=== PATIENT | female | born 1985 | race American Indian/Alaskan Native ===

== ENCOUNTER 2019-11-21 02:24 | Observation (INO) | payer MEDICAID ==
--- NOTE | 2019-11-21 03:16 | XRay Report ---
CHEST 1 VIEW, 11/21/2019 3:01 AM CLINICAL INFORMATION/INDICATION: Chest pain COMPARISON: None FINDINGS: SUPPORT DEVICES: None. HEART: The cardiac silhouette is normal in size. LUNGS/PLEURA: The lungs are clear of focal airspace disease or significant pleural effusion. ADDITIONAL FINDINGS: No additional acute findings. IMPRESSION: 1. No evidence of acute cardiopulmonary process. Signer Name: Ailyn Gresham MD Signed: 11/21/2019 3:11 AM Workstation Name: [id number]
[2019-11-21 03:55] LABS: Blood Urea Nitrogen 10 mg/dL (7-17); Calcium 9.3 mg/dL (8.4-10.2); Hemolysis Index 2
[2019-11-21 03:59] LABS: BUN/Creatinine Ratio 20
[2019-11-21 04:07] LABS: Basophils # (Auto) 0.1 K/mm3 (0.0-0.1); Basophils % (Auto) 0.5 % (0.0-1.8); Eosinophils # (Auto) 0.1 K/mm3 (0.0-0.4); Eosinophils % (Auto) 0.7 % (0.0-4.3); Hematocrit 35.4 % (30.3-42.9); Hemoglobin 11.3 gm/dl (10.1-14.3); Lymphocytes # (Auto) 2.3 K/mm3 (1.2-5.4); Mean Corpuscular HGB Conc 32 % (30-34); Mean Corpuscular Volume 72 fl (79-97); Monocytes # (Auto) 0.9 K/mm3 (0.0-0.8); Monocytes % (Auto) 8.6 % (0.0-7.3); Platelet Count 252 K/mm3 (140-440); Red Blood Count 4.91 M/mm3 (3.65-5.03); Red Cell Distribution Width 19.2 % (13.2-15.2)
[2019-11-21] MEDS ORDERED: ONDANSETRON 4 MG/2 ML INJ IV ONE (07:10)
[2019-11-21] MEDS ORDERED: SODIUM CHLORIDE 0.9% 1000 ML 1,000 ML IV ONE (07:10)
[2019-11-21] MEDS ORDERED: MORPHINE 4 MG/1 ML INJ IV ONE (07:10)
--- NOTE | 2019-11-21 07:15 | Emergency Department Report ---
ED Abdominal Pain HPI - General Chief Complaint: Chest Pain Stated Complaint: ABDOMINAL & CHEST PAIN Time Seen by Provider: 11/21/19 07:05 Source: patient, EMS Mode of arrival: Ambulatory Limitations: No Limitations - History of Present Illness Initial Comments: Patient is 34 years old female with no significant past medical history. Patient presented to the ER complaining of sudden onset of epigastric, substernal pain. Patient described as sharp increase when she swallow. Patient denied any nausea or vomiting or diarrhea. Patient stated that pain started when she came back from work this morning. Patient also denied any fever or chills. No cough or shortness of breath. Pain does not radiate to her chest. MD Complaint: abdominal pain -: This morning Location: RUQ, epigastric Radiation: none Migration to: no migration Severity: severe Severity scale (0 -10): 10 Consistency: constant - Related Data Allergies Allergy/AdvReac Type Severity Reaction Status Date / Time No Known Allergies Allergy Unverified 11/21/19 02:43 ED Review of Systems ROS: Stated complaint: ABDOMINAL & CHEST PAIN Other details as noted in HPI Comment: All other systems reviewed and negative Constitutional: denies: chills, fever Respiratory: denies: cough, orthopnea, shortness of breath, SOB with exertion Cardiovascular: denies: chest pain, palpitations, dyspnea on exertion Gastrointestinal: abdominal pain. denies: nausea, vomiting, diarrhea, constipation, hematemesis, melena, hematochezia Genitourinary: denies: frequency Musculoskeletal: denies: back pain Neurological: denies: headache, weakness, numbness ED Past Medical Hx - Past Medical History Previous Medical History?: No - Surgical History Past Surgical History?: Yes Additional Surgical History: Colostomy and colostomy reversal, Hysterectomy - Social History Smoking Status: Never Smoker Substance Use Type: None ED Physical Exam - General Limitations: No Limitations General appearance: alert, in distress - Head Head exam: Present: atraumatic, normocephalic, normal inspection - Eye Eye exam: Present: normal appearance - ENT ENT exam: Present: normal exam, normal orophraynx, mucous membranes moist - Neck Neck exam: Present: normal inspection, full ROM. Absent: tenderness, meningismus, lymphadenopathy, thyromegaly - Respiratory Respiratory exam: Present: normal lung sounds bilaterally - Cardiovascular Cardiovascular Exam: Present: regular rate, normal rhythm, normal heart sounds - GI/Abdominal GI/Abdominal exam: Present: soft, tenderness (Epigastric tenderness.), normal bowel sounds. Absent: distended, guarding, rebound, rigid, organomegaly, mass, bruit, pulsatile mass, hernia - Extremities Exam Extremities exam: Present: normal inspection, full ROM, normal capillary refill. Absent: tenderness, pedal edema, calf tenderness - Back Exam Back exam: Present: normal inspection, full ROM. Absent: CVA tenderness (R), CVA tenderness (L) - Neurological Exam Neurological exam: Present: alert, oriented X3, CN II-XII intact, normal gait, reflexes normal - Psychiatric Psychiatric exam: Present: normal mood - Skin Skin exam: Present: warm, intact, normal color ED Course Vital Signs 11/21/19 11/21/19 11/21/19 02:30 07:40 13:09 Temperature 98.2 F 98.6 F Pulse Rate 71 61 64 Respiratory 19 19 20 Rate Blood Pressure 122/82 137/76 Blood Pressure 121/60 [Left] O2 Sat by Pulse 99 100 98 Oximetry ED Medical Decision Making - Lab Data Result diagrams: 11/21/19 03:14 11/21/19 03:14 - Radiology Data Radiology results: report reviewed - Medical Decision Making Patient is 34 years old female with no significant past medical history. Patient presented to the ER complaining of sudden onset of epigastric, substernal pain. Patient described as sharp increase when she swallow. Patient denied any nausea or vomiting or diarrhea. Patient stated that pain started when she came back from work this morning. Patient also denied any fever or chills. No cough or shortness of breath. Pain does not radiate to her chest. Patient received morphine, fentanyl and Zofran. Patient still in pain. Labs reviewed and is unremarkable except for elevated d-dimer however CTA chest is negative for PE or any other acute pathology. Right upper quadrant ultrasound showed cholelithiasis with possible acute cholecystitis. I discussed the patient with , surgeon employee communications intern. She advised to admit patient to the hospital continue antibiotic and she will be consulted and the patient. I discussed the patient with Dr. Tolliver, he agreed to admit the patient to his service for further management. Critical care attestation.: If time is entered above; I have spent that time in minutes in the direct care of this critically ill patient, excluding procedure time. ED Disposition Clinical Impression: Abdominal pain, Acute cholecystitis Disposition: DC-09 OP ADMIT IP TO THIS HOSP Is pt being admited?: Yes Condition: Stable
[2019-11-21 07:57] LABS: INR 0.95 (0.87-1.13); Partial Thromboplastin Time 30.3 Sec. (24.2-36.6)
--- NOTE | 2019-11-21 08:39 | Ultrasound Report ---
ULTRASOUND ABDOMEN, LIMITED (RIGHT UPPER QUADRANT) INDICATION: Right upper quadrant pain, gallbladder ultrasound. COMPARISON: None available. FINDINGS: Pancreas: Obscured by bowel gas Liver: Hepatic steatosis. Gallbladder: Multiple gallstones. Bile ducts: Normal. Common Bile Duct measures 4-5 mm. Free fluid: None. Additional Findings: None. IMPRESSION: 1. Cholelithiasis. While there is no common duct dilatation, gallbladder wall thickening or perichole cystic fluid, the tree cutter reports a positive sonographic Mcdonnell's sign which suggests acute cha cystitis, correlate clinically. Signer Name: Henry Skelton MD Signed: 11/21/2019 8:34 AM Workstation Name: [id number]
[2019-11-21 08:42] LABS: Bilirubin,Urine NEG (Negative); Blood,Urine SM (Negative); Color,Urine Yellow (Yellow); Mucus,Urine 2+ /HPF; Protein,Urine <15 mg/dL mg/dL (Negative); Urobilinogen,Urine < 2.0 mg/dL (<2.0)
[2019-11-21] MEDS ORDERED: PIPERACILLIN/TAZOBACTAM 3.375 3.375 GM/50 ML BAG IV ONE ×2 (09:40→12:25)
[2019-11-21] MEDS ORDERED: fentaNYL 100 MCG/2 ML INJ IV ONE (09:41)
--- NOTE | 2019-11-21 10:30 | Cat Scan Report ---
CTA CHEST WITH IV CONTRAST INDICATION: MAIN. TECHNIQUE: Axial CT images were obtained through the chest after injection of IV contrast. 3 plane MIP reconstru ctions were produced. All CT scans at this location are performed using CT dose reduction for ALARA b y means of automated exposure control. COMPARISON: None available. FINDINGS: Pulmonary Arteries: No pulmonary emboli. Thoracic Aorta: No acute abnormality. Heart: Normal. Lungs: No acute air space or interstitial disease. Pleura: No pleural effusion. No pneumothorax. Lymph Nodes: No significant adenopathy. Additional Findings: There is a 2.7 cm hypodense lesion in the left thyroid lobe. Enlargement of the left lobe slightly displaces the airway toward the right. Upper Abdomen: Punctate gallstones are noted. Skeletal Structures: No significant osseous abnormality. IMPRESSION: 1. No CT evidence for pulmonary embolism. 2. No acute findings. 3. Incidental findings as above. Incidental thyroid nodule in left lobe measuring 2.7 cm in patient under age 35. Recommendation based on ACR guidelines: Follow-up outpatient diagnostic thyroid ultrasound. Signer Name: Henry Skelton MD Signed: 11/21/2019 10:26 AM Workstation Name: [id number]
--- NOTE | 2019-11-21 11:38 | History and Physical Report ---
History of Present Illness Date of examination: 11/21/19 Chief complaint: abd pain History of present illness: Patient is 34 years old female with no significant past medical history who presented to the ER complaining of sudden onset of epigastric, substernal pain with mild tenderness in the right upper quadrant. Patient denied any nausea or vomiting or diarrhea. Patient stated that pain started when she came back from work this morning. Patient also denied any fever or chills. No cough or shortness of breath. Pain does not radiate to her chest. Past History Past Medical History: No medical history Past Surgical History: No surgical history Social history: no significant social history Family history: no significant family history Medications and Allergies Allergies Allergy/AdvReac Type Severity Reaction Status Date / Time No Known Allergies Allergy Unverified 11/21/19 02:43 Exam - Constitutional Vitals: Temp Pulse Resp BP Pulse Ox 98.2 F 61 19 121/60 100 11/21/19 02:30 11/21/19 07:40 11/21/19 07:40 11/21/19 07:40 11/21/19 07:40 General appearance: Present: no acute distress, well-nourished - EENT Eyes: Present: PERRL ENT: hearing intact, clear oral mucosa - Neck Neck: Present: supple, normal ROM - Respiratory Respiratory effort: normal Respiratory: bilateral: CTA - Cardiovascular Heart Sounds: Present: S1 & S2. Absent: rub, click - Extremities Extremities: pulses symmetrical, No edema Peripheral Pulses: within normal limits - Abdominal General gastrointestinal: Present: soft, tender, non-distended, normal bowel sounds Localized gastrointestinal: tender: RUQ (Mild), epigastric periumbilical (Mild) Female genitourinary: Present: normal - Integumentary Integumentary: Present: clear, warm, dry - Musculoskeletal Musculoskeletal: gait normal, strength equal bilaterally - Psychiatric Psychiatric: appropriate mood/affect, intact judgment & insight - Neurologic Neurologic: CNII-XII intact, moves all extremities HEART Score - HEART Score Troponin: Troponin T < 0.010 ng/mL (0.00-0.029) 11/21/19 09:59 Results - Labs CBC & Chem 7: 11/21/19 03:14 11/21/19 03:14 Labs: Laboratory Last Values WBC 11.0 K/mm3 (4.5-11.0) 11/21/19 03:14 RBC 4.91 M/mm3 (3.65-5.03) 11/21/19 03:14 Hgb 11.3 gm/dl (10.1-14.3) 11/21/19 03:14 Hct 35.4 % (30.3-42.9) 11/21/19 03:14 MCV 72 fl (79-97) L 11/21/19 03:14 MCH 23 pg (28-32) L 11/21/19 03:14 MCHC 32 % (30-34) 11/21/19 03:14 RDW 19.2 % (13.2-15.2) H 11/21/19 03:14 Plt Count 252 K/mm3 (140-440) 11/21/19 03:14 Lymph % (Auto) 21.0 % (13.4-35.0) 11/21/19 03:14 [place] % (Auto) 8.6 % (0.0-7.3) H 11/21/19 03:14 Eos % (Auto) 0.7 % (0.0-4.3) 11/21/19 03:14 Baso % (Auto) 0.5 % (0.0-1.8) 11/21/19 03:14 Lymph # 2.3 K/mm3 (1.2-5.4) 11/21/19 03:14 [place] # 0.9 K/mm3 (0.0-0.8) H 11/21/19 03:14 Eos # 0.1 K/mm3 (0.0-0.4) 11/21/19 03:14 Baso # 0.1 K/mm3 (0.0-0.1) 11/21/19 03:14 Seg Neutrophils % 69.2 % (40.0-70.0) 11/21/19 03:14 Seg Neutrophils # 7.6 K/mm3 (1.8-7.7) 11/21/19 03:14 PT 12.9 Sec. (12.2-14.9) 11/21/19 07:22 INR 0.95 (0.87-1.13) 11/21/19 07:22 APTT 30.3 Sec. (24.2-36.6) 11/21/19 07:22 D-Dimer 257.47 ng/mlDDU (0-234) H 11/21/19 07:22 Sodium 139 mmol/L (137-145) 11/21/19 03:14 Potassium 3.4 mmol/L (3.6-5.0) L 11/21/19 03:14 Chloride 103.2 mmol/L (98-107) 11/21/19 03:14 Carbon Dioxide 22 mmol/L (22-30) 11/21/19 03:14 Anion Gap 17 mmol/L 11/21/19 03:14 BUN 10 mg/dL (7-17) 11/21/19 03:14 Creatinine 0.5 mg/dL (0.6-1.2) L 11/21/19 03:14 Estimated GFR > 60 ml/min 11/21/19 03:14 BUN/Creatinine Ratio 20 % 11/21/19 03:14 Glucose 110 mg/dL (65-100) H 11/21/19 03:14 Calcium 9.3 mg/dL (8.4-10.2) 11/21/19 03:14 Troponin T < 0.010 ng/mL (0.00-0.029) 11/21/19 09:59 HCG, Qual Negative (Negative) 11/21/19 07:22 Urine Color Yellow (Yellow) 11/21/19 Unknown Urine Turbidity Clear (Clear) 11/21/19 Unknown Urine pH 5.0 (5.0-7.0) 11/21/19 Unknown Ur Specific [place] 1.014 (1.003-1.030) 11/21/19 Unknown Urine Protein <15 mg/dl mg/dL (Negative) 11/21/19 Unknown Urine Glucose (UA) Neg mg/dL (Negative) 11/21/19 Unknown Urine Ketones Neg mg/dL (Negative) 11/21/19 Unknown Urine Blood Sm (Negative) 11/21/19 Unknown Urine Nitrite Neg (Negative) 11/21/19 Unknown Urine Bilirubin Neg (Negative) 11/21/19 Unknown Urine Urobilinogen < 2.0 mg/dL (<2.0) 11/21/19 Unknown Ur Leukocyte Esterase Neg (Negative) 11/21/19 Unknown Urine WBC (Auto) 3.0 /HPF (0.0-6.0) 11/21/19 Unknown Urine RBC (Auto) 4.0 /HPF (0.0-6.0) 11/21/19 Unknown U Epithel Cells (Auto) 4.0 /HPF (0-13.0) 11/21/19 Unknown Urine Mucus 2+ /HPF 11/21/19 Unknown [place]/IV: IV Catheter Type [Right INT / Saline Lock Antecubital] Assessment and Plan Assessment and plan: Abdominal pain -? Acute cholecystitis. Patient with positive Mcdonnell sign on exam. However, no common duct dilatation gallbladder wall thickening or pericholecystic fluid. Consult surgery for further evaluation and HIDA scan Left thyroid nodule. CT scan reveals 2.7 cm lesion in the left thyroid lobe. Follow-up with outpatient thyroid ultrasound. Check TSH. Obesity. Patient will be counseled on importance of diet and exercise at discharge.
[2019-11-21] MEDS ORDERED: ONDANSETRON 4 MG/2 ML INJ IV PRN (11:43)
[2019-11-21] MEDS ORDERED: ACETAMINOPHEN 325 MG TAB PO PRN (11:43)
--- NOTE | 2019-11-21 13:04 | Consultation ---
History of Present Illness Consult date: 11/21/19 Reason for consult: abdominal pain Chief complaint: Abdominal pain - History of present illness History of present illness: 34-year-old female with a history of morbid obesity, history of colostomy with r ecent reversal in July 2019 at [facility], [place]. She presents to the emergency room with sudden onset epigastric abdominal pain, lower mid chest pain since last night. The patient states that it started suddenly without any inciting factors. She has never had pain like this in the past. She has no pain after eating food. The pain starts in the subxiphoid area/epigastrium and radiates along bilateral upper quadrants. She also states that she was having a painful sensation when she tries to swallow even water. No fevers or chills, shortness of breath, nausea or vomiting. She states that after her colostomy reversal she was complaining of right-sided abdominal pain which was diagnosed as c onstipation. She was started on MiraLAX by her surgeon and her bowel movements became more regular. However, approximately 2 weeks ago she started having right-sided abdominal pain again and constipation. She presented to [facility], [place] and had a CT scan. She states that she was told by the doctors that there were no acute findings and she was released with a prescription for ibuprofen. The patient states she has been taking ibuprofen multiple times a day for the last 2 weeks. Work-up in the emergency room included an abdominal ultrasound which showed a gallbladder with gallstones, without evidence of wall thickening, CBD dilatation, pericholecystic fluid. Surgery was consulted for evaluation. Past History Past Medical History: No medical history Past Surgical History: hysterectomy, Other (Tubal ligation. Drainage of intra- abdominal abscesses following tubal ligation, hysterectomy, colostomy. Colostomy reversal.) Social history: no significant social history Family history: no significant family history Medications and Allergies Allergies Allergy/AdvReac Type Severity Reaction Status Date / Time No Known Allergies Allergy Unverified 11/21/19 02:43 Active Meds: Active Medications Acetaminophen (Tylenol) 650 mg PO Q4H PRN PRN Reason: Pain MILD(1-3)/Fever >100.5/BERGMAN Sodium Chloride (Nacl 0.9% 1000 Ml) 1,000 mls @ 75 mls/hr IV DIRECT SERGEY Piperacillin Sod/Tazobactam Sod (Zosyn/Ns 4.5gm/100ml) 4.5 gm in 100 mls @ 200 mls/hr IV Q8H SERGEY; Protocol Morphine Sulfate (Morphine) 2 mg IV Q4H PRN PRN Reason: Pain, Moderate (4-6) Ondansetron HCl (Zofran) 4 mg IV Q8H PRN PRN Reason: Nausea And Vomiting Sodium Chloride (Sodium Chloride Flush Syringe 10 Ml) 10 ml IV BID SERGEY Sodium Chloride (Sodium Chloride Flush Syringe 10 Ml) 10 ml IV PRN PRN PRN Reason: LINE FLUSH Review of Systems All systems: negative (10 point ROS performed and negative except for that listed in HPI) Exam Vital Signs Temp Pulse Resp BP Pulse Ox 98.2 F 71 19 122/82 99 11/21/19 02:30 11/21/19 02:30 11/21/19 02:30 11/21/19 02:30 11/21/19 02:30 Narrative exam: Gen.: Awake, alert, oriented 3. No apparent distress ENT: Trachea midline. No lymphadenopathy. No scleral icterus or conjunctival pallor CV: S1, S2 present Respiratory: No audible wheezes Abdomen: Soft, nondistended, obese, tenderness to palpation greatest in the epigastrium and some tenderness in the right upper quadrant and right lower quadrant. Well-healed surgical scar.. No rebound, rigidity, guarding Extremities: No clubbing, cyanosis, edema Results - Labs 11/21/19 03:14 11/21/19 03:14 Abnormal lab results 11/21/19 11/21/19 11/21/19 Range/Units 03:14 03:14 07:22 MCV 72 L (79-97) fl MCH 23 L (28-32) pg RDW 19.2 H (13.2-15.2) % [place] % (Auto) 8.6 H (0.0-7.3) % [place] # 0.9 H (0.0-0.8) K/mm3 D-Dimer 257.47 H (0-234) ng/mlDDU Potassium 3.4 L (3.6-5.0) mmol/L Creatinine 0.5 L (0.6-1.2) mg/dL Glucose 110 H (65-100) mg/dL Diabetes panel 11/21/19 Range/Units 03:14 Sodium 139 (137-145) mmol/L Potassium 3.4 L (3.6-5.0) mmol/L Chloride 103.2 (98-107) mmol/L Carbon Dioxide 22 (22-30) mmol/L BUN 10 (7-17) mg/dL Creatinine 0.5 L (0.6-1.2) mg/dL Glucose 110 H (65-100) mg/dL Calcium 9.3 (8.4-10.2) mg/dL Calcium panel 11/21/19 Range/Units 03:14 Calcium 9.3 (8.4-10.2) mg/dL Pituitary panel 11/21/19 Range/Units 03:14 Sodium 139 (137-145) mmol/L Potassium 3.4 L (3.6-5.0) mmol/L Chloride 103.2 (98-107) mmol/L Carbon Dioxide 22 (22-30) mmol/L BUN 10 (7-17) mg/dL Creatinine 0.5 L (0.6-1.2) mg/dL Glucose 110 H (65-100) mg/dL Calcium 9.3 (8.4-10.2) mg/dL Adrenal panel 11/21/19 Range/Units 03:14 Sodium 139 (137-145) mmol/L Potassium 3.4 L (3.6-5.0) mmol/L Chloride 103.2 (98-107) mmol/L Carbon Dioxide 22 (22-30) mmol/L BUN 10 (7-17) mg/dL Creatinine 0.5 L (0.6-1.2) mg/dL Glucose 110 H (65-100) mg/dL Calcium 9.3 (8.4-10.2) mg/dL - Imaging CT scan - chest: report reviewed, image reviewed US - abdomen: report reviewed, image reviewed Assessment and Plan 34-year-old female with 1. epigastric abdominal pain 2. Cholelithiasis, rule out cholecystitis 3. Morbid obesity Patient currently stable with pain managed with medications. Based on her history, physical exam, imaging, epigastric pain is most likely due to gastritis, possible PUD secondary to ibuprofen use multiple times a day for the last 2 weeks. She may also have some constipation. Less likely cholecystitis. Plan: 1. admitted to hospitalist service 2. start pepcid BID 3. prn pain control 4. gentle IVF 5. prn antiemetics 6. avoid NSAID, ibuprofen 7. agree with HIDA scan to further evaluate gallbladder. 8. ok to start clear liquids - NM tech not in house today 9. If HIDA negative and patient continues to have pain, would recommend GI consultation to evaluate for EGD. 10. bowel regimen The results of imaging and plan discussed in great detail with the patient. All questions answered. Thank you for this consultation. Please call with any questions or concerns. Evaluation and treatment of this patient was during the time of the national and state emergency arising from COVID19 coronavirus pandemic. Treatment and procedures performed meet the current and available best practice and guidelines for patient during the COVID pandemic.
[2019-11-21] MEDS: SODIUM CHLORIDE 0.9% 1000 ML 1,000 ML IV SCH (13:39)
[2019-11-21] MEDS: FAMOTIDINE 20 MG/2 ML INJ IV SCH ×2 (13:48→21:18)
[2019-11-21] MEDS: MORPHINE 2 MG/1 ML INJ IV PRN ×2 (13:48→18:22)
[2019-11-21] MEDS: SUCRALFATE 1 GM/10 ML ORAL LIQD PO SCH ×2 (16:51→21:18)
[2019-11-21] MEDS: PIPERACIL/TAZOBACTA 4.5/NS 100 4.5 GM/100 ML VIAL IV SCH (17:02)
[2019-11-21] MEDS: DOCUSATE SODIUM 100 MG/10 ML ORAL LIQD PO SCH (21:18)
[2019-11-22] MEDS: SODIUM CHLORIDE 0.9% 1000 ML 1,000 ML IV SCH (01:23)
[2019-11-22] MEDS: PIPERACIL/TAZOBACTA 4.5/NS 100 4.5 GM/100 ML VIAL IV SCH ×2 (01:24→09:21)
[2019-11-22] MEDS: MORPHINE 2 MG/1 ML INJ IV PRN (01:30)
[2019-11-22] MEDS: SUCRALFATE 1 GM/10 ML ORAL LIQD PO SCH ×2 (08:44→12:46)
--- NOTE | 2019-11-22 09:11 | Progress Note ---
Assessment and Plan Assessment and plan: Abdominal pain/cholelithiasis. Patient with positive Mcdonnell sign on exam. However, no common duct dilatation gallbladder wall thickening or pericholecystic fluid. Consult surgery for further evaluation and HIDA scan Left thyroid nodule. CT scan reveals 2.7 cm lesion in the left thyroid lobe. Follow-up with outpatient thyroid ultrasound. Check TSH. Obesity. Patient will be counseled on importance of diet and exercise at discharge. 11/22/2019. Continue supportive care with IV fluid hydration and pain control. Continue antiemetics and Pepcid twice daily. Await HIDA scan in a.m. If HIDA n egative and patient continues to have pain, would recommend GI consultation to evaluate for EGD. History Interval history: No new issues overnight. Hospitalist Physical - Constitutional Vitals: Temp Pulse Resp BP Pulse Ox 97.9 F 51 L 18 133/70 98 11/22/19 06:37 11/22/19 06:37 11/22/19 06:37 11/22/19 06:37 11/22/19 06:37 General appearance: Present: no acute distress, well-nourished - EENT Eyes: Present: PERRL, EOM intact ENT: hearing intact, clear oral mucosa, dentition normal - Neck Neck: Present: supple, normal ROM - Respiratory Respiratory effort: normal Respiratory: bilateral: CTA - Cardiovascular Rhythm: regular Heart Sounds: Present: S1 & S2. Absent: gallop, rub - Extremities Extremities: no ischemia, No edema, Full ROM - Abdominal General gastrointestinal: soft, non-tender, non-distended, normal bowel sounds - Integumentary Integumentary: Present: clear, warm, dry - Neurologic Neurologic: CNII-XII intact, moves all extremities HEART Score - HEART Score Troponin: Troponin T < 0.010 ng/mL (0.00-0.029) 11/21/19 09:59 Results - Labs CBC & Chem 7: 11/21/19 03:14 11/21/19 03:14 Labs: Laboratory Last Values WBC 11.0 K/mm3 (4.5-11.0) 11/21/19 03:14 RBC 4.91 M/mm3 (3.65-5.03) 11/21/19 03:14 Hgb 11.3 gm/dl (10.1-14.3) 11/21/19 03:14 Hct 35.4 % (30.3-42.9) 11/21/19 03:14 MCV 72 fl (79-97) L 11/21/19 03:14 MCH 23 pg (28-32) L 11/21/19 03:14 MCHC 32 % (30-34) 11/21/19 03:14 RDW 19.2 % (13.2-15.2) H 11/21/19 03:14 Plt Count 252 K/mm3 (140-440) 11/21/19 03:14 Lymph % (Auto) 21.0 % (13.4-35.0) 11/21/19 03:14 [place] % (Auto) 8.6 % (0.0-7.3) H 11/21/19 03:14 Eos % (Auto) 0.7 % (0.0-4.3) 11/21/19 03:14 Baso % (Auto) 0.5 % (0.0-1.8) 11/21/19 03:14 Lymph # 2.3 K/mm3 (1.2-5.4) 11/21/19 03:14 [place] # 0.9 K/mm3 (0.0-0.8) H 11/21/19 03:14 Eos # 0.1 K/mm3 (0.0-0.4) 11/21/19 03:14 Baso # 0.1 K/mm3 (0.0-0.1) 11/21/19 03:14 Seg Neutrophils % 69.2 % (40.0-70.0) 11/21/19 03:14 Seg Neutrophils # 7.6 K/mm3 (1.8-7.7) 11/21/19 03:14 PT 12.9 Sec. (12.2-14.9) 11/21/19 07:22 INR 0.95 (0.87-1.13) 11/21/19 07:22 APTT 30.3 Sec. (24.2-36.6) 11/21/19 07:22 D-Dimer 257.47 ng/mlDDU (0-234) H 11/21/19 07:22 Sodium 139 mmol/L (137-145) 11/21/19 03:14 Potassium 3.4 mmol/L (3.6-5.0) L 11/21/19 03:14 Chloride 103.2 mmol/L (98-107) 11/21/19 03:14 Carbon Dioxide 22 mmol/L (22-30) 11/21/19 03:14 Anion Gap 17 mmol/L 11/21/19 03:14 BUN 10 mg/dL (7-17) 11/21/19 03:14 Creatinine 0.5 mg/dL (0.6-1.2) L 11/21/19 03:14 Estimated GFR > 60 ml/min 11/21/19 03:14 BUN/Creatinine Ratio 20 % 11/21/19 03:14 Glucose 110 mg/dL (65-100) H 11/21/19 03:14 Calcium 9.3 mg/dL (8.4-10.2) 11/21/19 03:14 Troponin T < 0.010 ng/mL (0.00-0.029) 11/21/19 09:59 HCG, Qual Negative (Negative) 11/21/19 07:22 Urine Color Yellow (Yellow) 11/21/19 Unknown Urine Turbidity Clear (Clear) 11/21/19 Unknown Urine pH 5.0 (5.0-7.0) 11/21/19 Unknown Ur Specific [place] 1.014 (1.003-1.030) 11/21/19 Unknown Urine Protein <15 mg/dl mg/dL (Negative) 11/21/19 Unknown Urine Glucose (UA) Neg mg/dL (Negative) 11/21/19 Unknown Urine Ketones Neg mg/dL (Negative) 11/21/19 Unknown Urine Blood Sm (Negative) 11/21/19 Unknown Urine Nitrite Neg (Negative) 11/21/19 Unknown Urine Bilirubin Neg (Negative) 11/21/19 Unknown Urine Urobilinogen < 2.0 mg/dL (<2.0) 11/21/19 Unknown Ur Leukocyte Esterase Neg (Negative) 11/21/19 Unknown Urine WBC (Auto) 3.0 /HPF (0.0-6.0) 11/21/19 Unknown Urine RBC (Auto) 4.0 /HPF (0.0-6.0) 11/21/19 Unknown U Epithel Cells (Auto) 4.0 /HPF (0-13.0) 11/21/19 Unknown Urine Mucus 2+ /HPF 11/21/19 Unknown Microbiology: Microbiology 11/21/19 Unknown Peripheral/Venous Blood Culture - Preliminary Culture in Progress 11/21/19 Unknown Peripheral/Venous Blood Culture - Preliminary Culture in Progress Weathers/IV: Voiding Method Toilet IV Catheter Type [Right INT / Saline Lock Antecubital] Active Medications - Current Medications Current Medications: Generic Name Dose Route Start Last Admin Trade Name Freq PRN Reason Stop Dose Admin Acetaminophen 650 mg 11/21/19 11:43 Tylenol PO Q4H PRN Pain MILD(1-3)/Fever >100.5/BERGMAN Docusate Sodium 100 mg 11/21/19 22:00 11/21/19 21:18 Colace PO 100 mg BID SERGEY Administration Famotidine 20 mg 11/21/19 13:00 11/21/19 21:18 Pepcid IV 20 mg BID SERGEY Administration Sodium Chloride 1,000 mls @ 75 mls/hr 11/21/19 11:45 11/22/19 01:23 Nacl 0.9% 1000 Ml IV 75 mls/hr DIRECT SERGEY Administration Piperacillin Sod/Tazobactam Sod 4.5 gm in 100 mls @ 200 mls/hr 11/21/19 18:00 11/22/19 01:24 Zosyn/Ns 4.5gm/100ml IV 200 mls/hr Q8H SERGEY Administration Protocol Morphine Sulfate 2 mg 11/21/19 11:43 11/22/19 01:30 Morphine IV 2 mg Q4H PRN Administration Pain, Moderate (4-6) Ondansetron HCl 4 mg 11/21/19 11:43 Zofran IV Q8H PRN Nausea And Vomiting Sodium Chloride 10 ml 11/21/19 22:00 11/21/19 21:18 Sodium Chloride Flush Syringe 10 Ml IV 10 ml BID SERGEY Administration Sodium Chloride 10 ml 11/21/19 11:43 Sodium Chloride Flush Syringe 10 Ml IV PRN PRN LINE FLUSH Sucralfate 1 gm 11/21/19 16:30 11/22/19 08:44 Carafate PO 1 gm ACHS SERGEY Administration
[2019-11-22] MEDS: DOCUSATE SODIUM 100 MG/10 ML ORAL LIQD PO SCH (09:21)
[2019-11-22] MEDS: FAMOTIDINE 20 MG/2 ML INJ IV SCH (09:21)
--- NOTE | 2019-11-22 11:37 | Nuclear Medicine Report ---
Nuclear medicine hepatobiliary scan Indication: abd pain Findings:Comparison is made with ultrasound from one day prior. 5.0 mCi of technetium 99m Choletec were injected IV. There is prompt uptake and excretion of radiotracer by the hepatic parenchyma. Radiotracer activity i s seen within the common duct at 10 minutes and within the gallbladder at 10 minutes. There is radio tracer activity in the small bowel at 10-20 minutes. Impression: 1. No scintigraphic evidence of acute cholecystitis or common duct obstruction.. Signer Name: Henry Skelton MD Signed: 11/22/2019 11:32 AM Workstation Name: [id number]
[2019-11-22 13:34] VITALS: BP 140/74
[2019-11-22 13:51] LABS: Basophils % (Auto) 0.4 % (0.0-1.8); Eosinophils # (Auto) 0.1 K/mm3 (0.0-0.4); Eosinophils % (Auto) 0.9 % (0.0-4.3); Hematocrit 32.2 % (30.3-42.9); Lymphocytes # (Auto) 2.4 K/mm3 (1.2-5.4); Lymphocytes % (Auto) 34.8 % (13.4-35.0); Mean Corpuscular HGB Conc 34 % (30-34); Mean Corpuscular Volume 71 fl (79-97); Monocytes # (Auto) 0.4 K/mm3 (0.0-0.8); Monocytes % (Auto) 6.3 % (0.0-7.3); Platelet Count 235 K/mm3 (140-440); Red Blood Count 4.51 M/mm3 (3.65-5.03); Red Cell Distribution Width 19.2 % (13.2-15.2)
--- NOTE | 2019-11-22 14:04 | Progress Note ---
Assessment and Plan 34-year-old female with 1. epigastric abdominal pain, ?gastritis 2. Cholelithiasis, rule out cholecystitis 3. Morbid obesity Pt stable. HIDA scan negative. Plan: 1. dc IVF 2. adv diet to soft diet 3. dc abx 4. continue pepcid PO daily 5. pt advised to avoid NSAIds, ibuprofen, motrin etc 6. Advised patient to follow up in surgery clinic or with her surgeon at [facility] if abdominal pain recurs Ok to dc from surgery standpoint. Dr. Tolliver notified. Plan discussed with patient who understands and agrees Please call with any questions or concerns. Evaluation and treatment of this patient was during the time of the national and state emergency arising from COVID19 coronavirus pandemic. Treatment and procedures performed meet the current and available best practice and guidelines for patient during the COVID pandemic. Subjective Date of service: 11/22/19 Narrative: Pt seen and examined. No acute complaints. Abdominal pain resolved with intermittent soreness in right upper abdomen. Tolerating clear liquids. No n/v, f/c. Objective Vital Signs - 12hr 11/22/19 11/22/19 06:37 11:34 Temperature 97.9 F 98.2 F Pulse Rate 51 L 63 Respiratory 18 20 Rate Blood Pressure 133/70 140/74 O2 Sat by Pulse 98 97 Oximetry - General physical appearance Narrative Exam: Gen; AAOx3. NAD CV: S1, S2+ Resp: even and unlabored Abd: soft, NT, ND Ext: no c/c/e - Labs 11/22/19 13:43 11/21/19 03:14
--- NOTE | 2019-11-22 14:10 | Discharge Summary ---
Providers - Providers Date of Admission: 11/21/19 11:26 Date of discharge: 11/22/19 Attending physician: LIV BYRD 11/21/19 11:21 Consult to Physician [CONS] Stat Comment: Consulting Provider: LISA OWENS Physician Instructions: Reason For Exam: Acute cholecystitis. Primary care physician: MARYCHUY JONES MD Hospitalization Reason for admission: epigastric pain Condition: Stable Hospital course: 34-year-old female with a history of morbid obesity, history of colostomy with recent reversal in July 2019 at [facility]. She presented to the emergency room with sudden onset epigastric abdominal pain that it started suddenly without any inciting factors. She has never had pain like this in the past. She has no pain after eating food. The pain starts in the subxiphoid area/epigastrium and radiated along bilateral upper quadrants. She also states that she was having a painful sensation when she tries to swallow even water. No fevers or chills, shortness of breath, nausea or vomiting. She states that after her colostomy reversal she was complaining of right-sided abdominal pain which was diagnosed as constipation. She was started on MiraLAX by her surgeon and her bowel movements became more regular. However, approximately 2 weeks ago she started having right-sided abdominal pain again and constipation. She presented to [facility] and had a CT scan. She states that she was told by the doctors that there were no acute findings and she was released with a prescription for ibuprofen. The patient states she has been taking ibuprofen multiple times a day for the last 2 weeks. Work-up in the emergency room included an abdominal ultrasound which showed a gallbladder with gallstones, without evidence of wall thickening, CBD dilatation, pericholecystic fluid. Surgery was consulted for evaluation. HIDA scan was performed which was found to be negative. Etiology of pain likely secondary to GERD. Surgery recommeded d/c with Pepcid. D/C time 35 min Disposition: -01 TO HOME OR SELFCARE Time spent for discharge: 35 - Discharge Diagnoses (1) Abdominal pain Status: Acute Core Measure Documentation - Palliative Care Palliative Care/ Comfort Measures: Not Applicable - Core Measures Any of the following diagnoses?: none Exam - Constitutional Vitals: Temp Pulse Resp BP Pulse Ox 98.2 F 63 20 140/74 97 11/22/19 11:34 11/22/19 11:34 11/22/19 11:34 11/22/19 11:34 11/22/19 11:34 General appearance: Present: no acute distress, well-nourished - EENT Eyes: Present: PERRL ENT: hearing intact, clear oral mucosa - Neck Neck: Present: supple, normal ROM - Respiratory Respiratory effort: normal Respiratory: bilateral: CTA - Cardiovascular Heart Sounds: Present: S1 & S2. Absent: rub, click - Extremities Extremities: pulses symmetrical, No edema Peripheral Pulses: within normal limits - Abdominal General gastrointestinal: Present: soft, non-tender, non-distended, normal bowel sounds Female genitourinary: Present: normal - Integumentary Integumentary: Present: clear, warm, dry - Musculoskeletal Musculoskeletal: gait normal, strength equal bilaterally - Psychiatric Psychiatric: appropriate mood/affect, intact judgment & insight - Neurologic Neurologic: CNII-XII intact, moves all extremities Plan Activity: advance as tolerated Weight Bearing Status: Weight Bear as Tolerated Diet: regular Follow up with: MARYCHUY JONES MD [Primary Care Provider] - 3-5 Days LISA OWENS DO [Staff Physician] - 7 Days PROMISE GARCIA MD [Staff Physician] - 7 Days Prescriptions: Famotidine [Pepcid] 20 mg PO BID #60 tablet
[2019-11-22 14:26] LABS: Alanine Aminotransferase 8 units/L (7-56); Albumin 3.9 g/dL (3.9-5); Blood Urea Nitrogen 5 mg/dL (7-17); Hemolysis Index 17
[2019-11-22 14:27] LABS: BUN/Creatinine Ratio 8
== END 2019-11-22 15:50 | disposition home or self-care (01) ==
LOC: ED 02:24 → 3A 11:26
PROVIDERS: ADMIT Hospitalist; ATTEND Hospitalist
DX: K80.00 Calculus of gallbladder with acute cholecystitis without obstruction (principal); E04.1 Nontoxic single thyroid nodule; E66.01 Morbid (severe) obesity due to excess calories; K59.00 Constipation, unspecified; Z93.3 Colostomy status; Z90.710 Acquired absence of both cervix and uterus; Z68.42 Body mass index [BMI] 45.0-49.9, adult
CPT/HCPCS: 36415; 71045; 71275; 76705; 78226; 80048; 80053; 81001; 84484; 84703; 85025; 85379; 85610; 85730; 87040; 93005; 96361; 96365; 96366; 96375; 96376; 99285; A9537; G0378; J2270; J2405; J2543; J3010; J7030; Q9967